=== PATIENT | male | born 1990 | race Hispanic/Latino ===

== ENCOUNTER 2017-03-15 18:36 | Emergency (ER) | payer SELFPAY ==
[~2017-03-15] VITALS: Ht 170.2 cm; Wt 180.6 kg
[~2017-03-15 18:36] MED LIST: NO HOME MEDS
[2017-03-15] MEDS ORDERED: BACTRIM DS1 TAB PO (19:24)
[2017-03-15] MEDS ORDERED: ULTRAM50 M1 PO (19:24)
[2017-03-15 19:35] VITALS: BP 151/74
== END 2017-03-15 19:35 | disposition home or self-care (01) | DRG 603 ==
LOC: ED 18:36
DX: L02.11 Cutaneous abscess of neck (principal); L03.221 Cellulitis of neck